=== PATIENT | female | born 1995 | race Caucasian/White ===

== ENCOUNTER 2024-12-22 05:55 | Inpatient (IN) | payer SELFPAY ==
[~2024-12-22] VITALS: Ht 167.6 cm; Wt 82.6 kg
[2024-12-22] VITALS (9 sets, daily range): BP systolic 115–130; BP diastolic 61–84
[~2024-12-22 05:55] MED LIST: MEDROL DOSEPAK4 MG PO
[2024-12-22] MEDS ORDERED: Ondansetron Hydrochloride 4 MG/2 ML VIAL IV PRN (08:45)
[2024-12-22] MEDS ORDERED: ACETAMINOPHEN 650 MG SUPP R PRN (08:45)
[2024-12-22] MEDS ORDERED: BISACODYL 5 MG TAB PO PRN (08:45)
[2024-12-22] MEDS ORDERED: Magnesium Hydroxide 30 ML UDC PO PRN (08:45)
[2024-12-22] MEDS ORDERED: TEMAZEPAM 15 MG CAP PO PRN (08:45)
[2024-12-22] MEDS ORDERED: BISACODYL 10 MG SUPP R PRN (08:45)
[2024-12-22] MEDS ORDERED: ACETAMINOPHEN 325 MG TAB PO PRN (08:45)
[2024-12-22] MEDS ORDERED: SODIUM CHLORIDE 0.9% 1,000 ML IV ONE (08:50)
[2024-12-22] MEDS ORDERED: Ketorolac Tromethamine 15 MG/ML VIAL IV PRN (08:50)
[2024-12-22 09:34] LABS: BASO % 0.2 % (0.0-1.0); HEMATOCRIT 40.8 % (37.0-47.0); MEAN CELL VOLUME 93.4 fl (81.0-99.0); MEAN CORPUSCULAR HGB 30.9 pg (27.0-31.0); MEAN CORPUSCULAR HGB CONC 33.1 g/dl (33.0-37.0); MEAN PLATELET VOLUME 10.3 fl (9.6-12.3); MONO % 5.7 % (3.0-9.0); NEUT # 14.2 10*3/uL (2.3-7.9); NEUT % 80.2 % (47.0-73.0); PLATELET COUNT AUTOMATED 384 10*3/uL (130-400); RED BLOOD COUNT 4.37 10*6/uL (4.10-5.10); RED CELL DISTRI WIDTH 13.5 % (0-14.5); WHITE BLOOD COUNT 17.7 10*3/uL (4.8-10.8)
[2024-12-22 09:42] LABS: CHLORIDE 105 mmol/L (98-107); POTASSIUM 3.5 mmol/L (3.4-5.1)
[2024-12-22 09:54] LABS: BUN < 5 mg/dl (9-23)
[2024-12-22] MEDS ORDERED: SODIUM CHLORIDE 0.9% 1,000 ML IV SCH (10:15)
[2024-12-22] MEDS ORDERED: Piperacillin Sodium/Tazobact 50 ML IV SCH (12:00)
[2024-12-22] MEDS ORDERED: MORPHINE Sulfate 30 MG/30 ML SYR IV SCH (15:00)
[2024-12-22] MEDS ORDERED: MORPHINE Sulfate 50 MG in SODIUM CHLORIDE 0.9% 45 ML IV SCH (15:30)
[2024-12-22] MEDS ORDERED: LEXAPRO20 MG PO (16:52)
[2024-12-22] MEDS ORDERED: AIRSUPRA 90-810.7 GM INH (16:56)
[2024-12-22] MEDS ORDERED: AIRSUPRA INH PRN (17:25)
[2024-12-22] MEDS ORDERED: ROCURONIUM BROMIDE 50 MG/5 ML SYRINGE IV ONE (18:47)
[2024-12-22] MEDS ORDERED: fentaNYL CITRATE 100 MCG/2 ML VIAL IV ONE (18:47)
[2024-12-22] MEDS ORDERED: SEVOFLURANE 250 ML BOT INH ONE (18:47)
[2024-12-22] MEDS ORDERED: Dexamethasone Sodium Phospha 4 MG/ML VIAL IV ONE (18:47)
[2024-12-22] MEDS ORDERED: Ketorolac Tromethamine 30 MG/ML VIAL IV ONE (18:47)
[2024-12-22] MEDS ORDERED: SUGAMMADEX SODIUM 200 MG/2 ML VIAL IV ONE (18:47)
[2024-12-22] MEDS ORDERED: PROPOFOL 200 MG/20 ML VIAL IV ONE (18:47)
[2024-12-22] MEDS ORDERED: Ondansetron Hydrochloride 4 MG/2 ML VIAL IV ONE (18:47)
[2024-12-22] MEDS ORDERED: Lidocaine Hydrochloride 5 ML VIAL IV ONE (18:47)
[2024-12-23] VITALS: BP 123/71
[2024-12-23 05:38] LABS: ALKALINE PHOSPHATASE 81 U/L (46-116); BUN 9 mg/dl (9-23); CHLORIDE 106 mmol/L (98-107); POTASSIUM 3.8 mmol/L (3.4-5.1); SGPT/ALT 11 U/L (5-49); TOTAL PROTEIN 6.3 gm/dL (6.0-8.0)
[2024-12-23 06:13] LABS: BASO % 0.1 % (0.0-1.0); MEAN CELL VOLUME 94.3 fl (81.0-99.0); MEAN CORPUSCULAR HGB CONC 32.9 g/dl (33.0-37.0); MEAN PLATELET VOLUME 10.7 fl (9.6-12.3); MONO # 0.8 10*3/uL (0.1-1.0); MONO % 5.6 % (3.0-9.0); NEUT # 12.3 10*3/uL (2.3-7.9); PLATELET COUNT AUTOMATED 328 10*3/uL (130-400); RED BLOOD COUNT 4.03 10*6/uL (4.10-5.10); RED CELL DISTRI WIDTH 13.9 % (0-14.5); WHITE BLOOD COUNT 15.1 10*3/uL (4.8-10.8)
[2024-12-23] MEDS ORDERED: Acetaminophen/Oxycodone 5 MG/325 MG TABLET PO PRN (07:25)
[2024-12-23 08:00] VITALS: BP 126/66
[2024-12-23] MEDS ORDERED: ESCITALOPRAM OXALATE 20 MG TAB PO SCH (10:00)
[2024-12-23 12:00] VITALS: BP 106/50
[2024-12-23 16:00] VITALS: BP 120/60
[2024-12-23 20:00] VITALS: BP 118/66
[2024-12-24] VITALS: BP 123/72
[2024-12-24 06:23] LABS: BASO % 0.2 % (0.0-1.0); BUN 7 mg/dl (9-23); CHLORIDE 105 mmol/L (98-107); EOS # 0.1 10*3/uL (0.0-0.4); EOS % 0.9 % (1.0-4.0); HEMATOCRIT 37.4 % (37.0-47.0); MEAN CELL VOLUME 95.4 fl (81.0-99.0); MEAN CORPUSCULAR HGB 31.1 pg (27.0-31.0); MEAN CORPUSCULAR HGB CONC 32.6 g/dl (33.0-37.0); MEAN PLATELET VOLUME 10.4 fl (9.6-12.3); MONO # 0.6 10*3/uL (0.1-1.0); MONO % 6.7 % (3.0-9.0); NEUT % 59.2 % (47.0-73.0); PLATELET COUNT AUTOMATED 293 10*3/uL (130-400); POTASSIUM 3.4 mmol/L (3.4-5.1); RED BLOOD COUNT 3.92 10*6/uL (4.10-5.10); WHITE BLOOD COUNT 8.5 10*3/uL (4.8-10.8)
[2024-12-24 08:00] VITALS: BP 120/56
[2024-12-24] MEDS ORDERED: MINERAL OIL 30 ML UDC PO ONE (12:16)
[2024-12-24] MEDS ORDERED: OXYCODONE-ACET1 EAC3 PO (15:56)
[2024-12-24] MEDS ORDERED: COLACE100 MG PO (15:58)
== END 2024-12-24 16:23 | disposition home or self-care (01) | DRG 346 ==
LOC: ED 05:55 → 4E 08:29 → EDHOLD 08:29 → 4E 13:33
PROVIDERS: Nurse Practitioner; Student in an Organized Health Care Education/Training Program; ADMIT Family Medicine; ATTEND Family Medicine
PROC: 0DCN0ZZ Extirpation of Matter from Sigmoid Colon, Open Approach (ICD-10-PCS; principal; 2024-12-22)
DX: T18.5XXA Foreign body in anus and rectum, initial encounter (principal); F41.9 Anxiety disorder, unspecified; G56.01 Carpal tunnel syndrome, right upper limb; D72.828 Other elevated white blood cell count; R73.9 Hyperglycemia, unspecified; Y93.89 Activity, other specified; Y99.8 Other external cause status; Y92.89 Other specified places as the place of occurrence of the external cause; Z88.5 Allergy status to narcotic agent; Z82.49 Family history of ischemic heart disease and other diseases of the circulatory system